=== PATIENT | female | born 1990 | race Caucasian/White ===

== ENCOUNTER 2020-01-19 10:57 | Emergency (ER) | payer SELFPAY ==
[2020-01-19 11:06] VITALS: BP 115/67
--- NOTE | 2020-01-19 11:13 | ER Document Report ---
ED Extremity Problem, Lower - General Chief Complaint: Foot Pain Stated Complaint: FOOT PAIN Time Seen by Provider: 01/19/20 11:09 Primary Care Provider: DARIUS JERNIGAN DO [ACTIVE STAFF] - Follow up as needed Notes: CHIEF COMPLAINT: Right foot injury last night HPI: 29-year-old female presenting for dorsal right foot injury last night. Patient was walking through the house and did not notice the kennel door was op en and caught her foot underneath it. Patient had difficulty extricating her foot from underneath the door. Now with pain and discomfort over the dorsal aspect of the foot she has been icing it at home. States she cannot weight-bear because of pain. ROS: See HPI - all other systems were reviewed and are otherwise negative Constitutional: no fever Integumentary: Positive bruising Allergy: no hives Musculoskeletal: + extremity pain or swelling Neurological: no numbness/tingling, no weakness MEDICATIONS: I agree with the patient medications as charted by the RN. ALLERGIES: I agree with the allergies as charted by the RN. PAST MEDICAL HISTORY/PAST SURGICAL HISTORY: Reviewed and agree as charted by RN. SOCIAL HISTORY: Reviewed and agree as charted by RN. FAMILY HISTORY: No significant familial comorbid conditions directly related to patient complaint EXAM: Reviewed vital signs as charted by RN. CONSTITUTIONAL: Alert and oriented and responds appropriately to questions. Well-appearing; well-nourished HEAD: Normocephalic; atraumatic EYES: Conjunctivae clear, sclerae non-icteric ENT: normal nose; no rhinorrhea; moist mucous membranes NECK: Supple without meningismus CARD: RRR; no murmurs, no clicks, no rubs, no gallops; symmetric distal pulses RESP: Normal chest excursion without splinting or tachypnea ABD/GI: non-distended BACK: The back appears normal EXT: Normal ROM in all joints; there is soft tissue swelling with bruising over the dorsal aspect of the right midfoot with tenderness on palpation. Dorsalis pedis and posterior tibial pulses present in the right foot and ankle. Sensation intact in the toes with capillary refill less than 3 seconds. No medial or lateral malleolus tenderness on palpation of the right foot SKIN: Normal color for age and race; warm; dry; good turgor NEURO: Moves all extremities equally; Motor and sensory function intact PSYCH: The patient's mood and manner are appropriate. Grooming and personal hygiene are appropriate. MDM: 29-year-old female injury to the dorsal aspect of the right foot. Will obtain x-ray to evaluate for fracture. If x-ray negative likely a soft tissue injury will treat symptomatically, postop shoe, crutches weightbearing as tolerated anti-inflammatories ice and orthopedic follow-up - Related Data Allergies/Adverse Reactions: Penicillins Allergy (Verified 01/19/20 11:09) Past Medical History - Social History Smoking Status: Unknown if Ever Smoked Family History: Reviewed & Not Pertinent Physical Exam - Vital signs Vitals: Temp Pulse Resp BP Pulse Ox 98.6 F 81 20 115/67 100 01/19/20 11:04 01/19/20 11:04 01/19/20 11:04 01/19/20 11:04 01/19/20 11:04 Course - Re-evaluation Re-evalutation: 01/19/20 11:43 I do not visualize a fracture in the area of the patient's discomfort on my review of the patient's x-ray - Vital Signs Vital signs: Temp Pulse Resp BP Pulse Ox 98.6 F 81 20 115/67 100 01/19/20 11:04 01/19/20 11:04 01/19/20 11:04 01/19/20 11:04 01/19/20 11:04 Procedures - Immobilization Right Foot Time completed: 11:42 Pre-Proc Neuro Vasc Exam: Normal Immobilizer type: Crutches, Post-op shoe Performed by: PCT Post-Proc Neuro Vasc Exam: Normal, Unchanged from pre-exam Alignment checked and good: Yes Discharge - Discharge Clinical Impression: Contusion of foot, right Qualifiers: Encounter type: initial encounter Qualified Code(s): S90.31XA - Contusion of right foot, initial encounter Condition: Stable Disposition: HOME, SELF-CARE Instructions: Contusion ([facility]) Additional Instructions: Ice or cool compresses to the foot is much as possible. Take the Voltaren for pain. Utilize the crutches but weightbearing as tolerated, follow-up orthopedics call for appointment Prescriptions: Diclofenac Sodium [Voltaren 50 Mg Tablet.] 50 mg PO BID #20 tablet. Referrals: DARIUS JERNIGAN DO [ACTIVE STAFF] - Follow up as needed
--- NOTE | 2020-01-19 11:50 | RADIOLOGY REPORT (SQ) ---
EXAM DESCRIPTION: FOOT RIGHT COMPLETE IMAGES COMPLETED DATE/TIME: 01/19/2020 11:37 am REASON FOR STUDY: dorsal foot injury COMPARISON: None. NUMBER OF VIEWS: Three views. TECHNIQUE: AP, lateral and oblique radiographic images acquired of the right foot. LIMITATIONS: None. FINDINGS: MINERALIZATION: Normal. BONES: No acute fracture or dislocation. No worrisome bone lesions. JOINTS: No effusions. SOFT TISSUES: No soft tissue swelling. No foreign body. OTHER: No other significant finding. IMPRESSION: NEGATIVE STUDY OF THE RIGHT FOOT. NO RADIOGRAPHIC EVIDENCE OF ACUTE INJURY. TECHNICAL DOCUMENTATION: JOB ID: [id number] 2010 [employer]- All Rights Reserved Reading location - IP/workstation name: [email or web address]
== END 2020-01-19 11:40 | disposition home or self-care (01) ==
LOC: ER 10:57
DX: S90.31XA Contusion of right foot, initial encounter (principal); W23.0XXA Caught, crushed, jammed, or pinched between moving objects, initial encounter; Y92.009 Unspecified place in unspecified non-institutional (private) residence as the place of occurrence of the external cause; Z88.0 Allergy status to penicillin
CPT/HCPCS: 99283